=== PATIENT | male | born 1965 | race Caucasian/White ===

== ENCOUNTER 2021-11-16 12:52 | Inpatient (IN) | payer OTHER ==
[2021-11-16] MEDS ORDERED: MAGNESIUM CITRATE 300 ML BOTTLE PO PRN (15:35)
[2021-11-16] MEDS ORDERED: LOPERAMIDE HCL 2 MG CAPSULE PO PRN (15:35)
[2021-11-16] MEDS ORDERED: MAG HYDROX/AL HYDROX/SIMETH 30 ML UNIT-DOSE CUP PO PRN (15:35)
[2021-11-16] MEDS ORDERED: MENTHOL/PHENOL 1 EACH UD MM PRN (15:35)
[2021-11-16] MEDS ORDERED: ONDANSETRON *ODT* 4 MG TABLET SL PRN (15:35)
[2021-11-16] MEDS ORDERED: ACETAMINOPHEN 325 MG TABLET (FP) PO PRN ×2 (15:35)
[2021-11-16] MEDS ORDERED: MAGNESIUM HYDROX 2400MG/30ML ORAL SUSPENSION 30 ML CUP PO PRN (15:35)
[2021-11-16] MEDS ORDERED: NICOTINE 10 MG CARTRIDGE (INHALER) IH PRN (15:35)
[2021-11-16] MEDS ORDERED: IBUPROFEN 400 MG TABLET (FP) PO PRN (15:35)
[2021-11-16] MEDS ORDERED: BISMUTH SUBSALICYLATE 524 MG/30 ML PO PRN (15:35)
[2021-11-16 15:56] VITALS: BMI 35.9
[2021-11-16] MEDS: hydrOXYzine PAMOATE 25 MG CAPSULE (FP) PO SCH ×2 (19:41→22:23)
[2021-11-16] MEDS: MELATONIN 5 MG TABLETS PO SCH (22:24)
[2021-11-16] MEDS: THIAMINE HCL 100 MG TABLET (FP) PO SCH (22:24)
[2021-11-16] MEDS: APIXABAN 5 MG TABLET PO SCH (22:24)
[2021-11-17] MEDS: hydrOXYzine PAMOATE 25 MG CAPSULE (FP) PO SCH ×5 (05:37→22:15)
[2021-11-17] MEDS ORDERED: methaDONE HCL 10 MG TABLET PO ONE (10:06)
[2021-11-17] MEDS ORDERED: LORazepam 1 MG TABLET PO PRN (11:12)
[2021-11-17] MEDS ORDERED: methaDONE HCL 10 MG TABLET ONE (11:30)
[2021-11-17] MEDS ORDERED: methaDONE HCL 40 MG DISPERSABLE TABLET ONE (11:31)
[2021-11-17] MEDS: APIXABAN 5 MG TABLET PO SCH ×2 (11:34→22:15)
[2021-11-17] MEDS: PRENATAL VITAMINS W/ FOLIC ACID TABLET (FP) PO SCH (11:34)
[2021-11-17 12:50] LABS: HEMATOCRIT 40.6 % (35.4-49); HEMOGLOBIN 12.7 GM/dL (11.7-16.9); MCH 28.2 pg (25.7-33.7); MCHC 31.4 g/dl (32.0-35.9); MEAN CELL VOLUME 89.8 fl (80-96); MEAN PLT VOLUME 9.3 fl (7.5-11.1); PLATELET COUNT 276 10^3/uL (134-434); RBC 4.52 M/mm3 (4.00-5.60); WHITE BLOOD COUNT 7.4 K/mm3 (4.0-10.0)
[2021-11-17 13:05] LABS: CALCIUM 9.6 mg/dL (8.5-10.1)
[2021-11-17 13:06] LABS: ALBUMIN 3.7 g/dl (3.4-5.0); BLOOD UREA NITROGEN 19.7 mg/dL (7-18)
[2021-11-17 13:09] LABS: CREATININE 0.9 mg/dL (0.55-1.3)
[2021-11-17 13:10] LABS: TOT PROT 7.1 g/dl (6.4-8.2)
[2021-11-17 13:11] LABS: BILIRUBIN,TOTAL 0.2 mg/dL (0.2-1)
[2021-11-17] MEDS: LORazepam 2 MG TABLET PO SCH ×3 (13:39→22:15)
[2021-11-17] MEDS: MELATONIN 5 MG TABLETS PO SCH (22:15)
[2021-11-17] MEDS: THIAMINE HCL 100 MG TABLET (FP) PO SCH (22:15)
[2021-11-18] MEDS ORDERED: methaDONE HCL 10 MG TABLET ONE (04:11)
[2021-11-18] MEDS ORDERED: methaDONE HCL 40 MG DISPERSABLE TABLET ONE (04:12)
[2021-11-18] MEDS: hydrOXYzine PAMOATE 25 MG CAPSULE (FP) PO SCH ×5 (05:14→22:36)
[2021-11-18] MEDS: LORazepam 2 MG TABLET PO SCH ×4 (05:14→22:36)
[2021-11-18] MEDS ORDERED: methaDONE HCL 10 MG TABLET PO SCH (06:00)
[2021-11-18] MEDS: APIXABAN 5 MG TABLET PO SCH ×2 (10:05→22:36)
[2021-11-18] MEDS: METHOCARBAMOL 500 MG TABLET PO PRN (10:05)
[2021-11-18] MEDS: PRENATAL VITAMINS W/ FOLIC ACID TABLET (FP) PO SCH (10:06)
[2021-11-18] MEDS: traZODone HCL 50 MG TABLET (FP) PO SCH (22:36)
[2021-11-18] MEDS: THIAMINE HCL 100 MG TABLET (FP) PO SCH (22:36)
[2021-11-18] MEDS: MELATONIN 5 MG TABLETS PO SCH (22:37)
[2021-11-18] MEDS: SILVER SULFADIAZINE 1% TOP CREAM 50 GM JAR TP SCH (22:39)
[2021-11-19] MEDS ORDERED: methaDONE HCL 10 MG TABLET ONE (04:14)
[2021-11-19] MEDS ORDERED: methaDONE HCL 40 MG DISPERSABLE TABLET ONE (04:14)
[2021-11-19] MEDS: hydrOXYzine PAMOATE 25 MG CAPSULE (FP) PO SCH ×5 (05:13→22:28)
[2021-11-19] MEDS: LORazepam 1 MG TABLET PO SCH ×4 (05:13→22:26)
[2021-11-19] MEDS: APIXABAN 5 MG TABLET PO SCH ×2 (10:41→22:27)
[2021-11-19] MEDS: SILVER SULFADIAZINE 1% TOP CREAM 50 GM JAR TP SCH ×2 (10:42→23:19)
[2021-11-19] MEDS: PRENATAL VITAMINS W/ FOLIC ACID TABLET (FP) PO SCH (10:42)
[2021-11-19 16:09] LABS: SARS-CoV-2 NAA Not Detected (Not Detected)
[2021-11-19] MEDS: THIAMINE HCL 100 MG TABLET (FP) PO SCH (22:27)
[2021-11-19] MEDS: traZODone HCL 50 MG TABLET (FP) PO SCH (22:27)
[2021-11-19] MEDS: MELATONIN 5 MG TABLETS PO SCH (22:28)
[2021-11-20] MEDS ORDERED: LORazepam 0.5 MG TABLET PO PRN
[2021-11-20] MEDS ORDERED: methaDONE HCL 40 MG DISPERSABLE TABLET ONE (04:17)
[2021-11-20] MEDS ORDERED: methaDONE HCL 10 MG TABLET ONE (04:17)
[2021-11-20] MEDS: hydrOXYzine PAMOATE 25 MG CAPSULE (FP) PO SCH ×5 (05:36→22:34)
[2021-11-20] MEDS: LORazepam 0.5 MG TABLET PO SCH ×4 (05:36→22:34)
[2021-11-20] MEDS: APIXABAN 5 MG TABLET PO SCH ×2 (10:42→22:34)
[2021-11-20] MEDS: METHOCARBAMOL 500 MG TABLET PO PRN (10:42)
[2021-11-20] MEDS: SILVER SULFADIAZINE 1% TOP CREAM 50 GM JAR TP SCH ×2 (10:43→22:34)
[2021-11-20] MEDS: PRENATAL VITAMINS W/ FOLIC ACID TABLET (FP) PO SCH (10:44)
[2021-11-20] MEDS: MELATONIN 5 MG TABLETS PO SCH (22:33)
[2021-11-20] MEDS: traZODone HCL 50 MG TABLET (FP) PO SCH (22:34)
[2021-11-20] MEDS: THIAMINE HCL 100 MG TABLET (FP) PO SCH (22:34)
[2021-11-21] MEDS ORDERED: methaDONE HCL 10 MG TABLET ONE (04:09)
[2021-11-21] MEDS ORDERED: methaDONE HCL 40 MG DISPERSABLE TABLET ONE (04:10)
[2021-11-21] MEDS ORDERED: LORazepam 0.5 MG TABLET PO ONE (05:00)
[2021-11-21] MEDS: hydrOXYzine PAMOATE 25 MG CAPSULE (FP) PO SCH (05:35)
[2021-11-21 09:03] VITALS: BP 126/71; PULSE 74; TEMP 97.3
== END 2021-11-21 10:14 | disposition other institution (70) | DRG 773 ==
LOC: YASAS 12:52 → Y6N 17:33
PROVIDERS: ADMIT Allergy & Immunology; ATTEND Allergy & Immunology
PROC: HZ2ZZZZ Detoxification Services for Substance Abuse Treatment (ICD-10-PCS; principal; 2021-11-16)
DX: F11.23 Opioid dependence with withdrawal (principal); F13.230 Sedative, hypnotic or anxiolytic dependence with withdrawal, uncomplicated; F14.20 Cocaine dependence, uncomplicated; F17.210 Nicotine dependence, cigarettes, uncomplicated; F19.280 Other psychoactive substance dependence with psychoactive substance-induced anxiety disorder; F19.282 Other psychoactive substance dependence with psychoactive substance-induced sleep disorder; F39 Unspecified mood [affective] disorder; F34.1 Dysthymic disorder; L97.811 Non-pressure chronic ulcer of other part of right lower leg limited to breakdown of skin; Z86.718 Personal history of other venous thrombosis and embolism; Z79.01 Long term (current) use of anticoagulants; Z56.0 Unemployment, unspecified
CPT/HCPCS: 36415; 71046-TC-FY; 80053; 82947; 84520; 85027; 86780; 93005; 93010; C9803; U0003; U0005

== ENCOUNTER 2021-11-23 12:22 | Inpatient (IN) | payer OTHER ==
[2021-11-23] MEDS ORDERED: guaiFENesin 200 MG/10 ML 10 ML UNIT-DOSE CUPS PO PRN (12:53)
[2021-11-23] MEDS ORDERED: P-EPHED 60MG/TRIPROLIDI 2.5MG TABLET PO PRN (12:53)
[2021-11-23] MEDS ORDERED: MAG HYDROX/AL HYDROX/SIMETH 30 ML UNIT-DOSE CUP PO PRN (12:53)
[2021-11-23] MEDS ORDERED: IBUPROFEN 400 MG TABLET (FP) PO PRN (12:53)
[2021-11-23] MEDS ORDERED: LOPERAMIDE HCL 2 MG CAPSULE PO PRN (12:53)
[2021-11-23] MEDS ORDERED: MAGNESIUM HYDROX 2400MG/30ML ORAL SUSPENSION 30 ML CUP PO PRN (12:53)
[2021-11-23] MEDS ORDERED: MAGNESIUM CITRATE 300 ML BOTTLE PO PRN (12:53)
[2021-11-23 18:48] VITALS: BMI 38.0
[2021-11-23] MEDS: hydrOXYzine PAMOATE 25 MG CAPSULE (FP) PO SCH ×3 (21:27→22:08)
[2021-11-23] MEDS: THIAMINE HCL 100 MG TABLET (FP) PO SCH (21:27)
[2021-11-23] MEDS: SILVER SULFADIAZINE 1% TOP CREAM 50 GM JAR TP SCH (21:27)
[2021-11-23] MEDS ORDERED: MELATONIN 5 MG TABLETS PO SCH (22:00)
[2021-11-23] MEDS: APIXABAN 5 MG TABLET PO SCH ×2 (22:10→22:12)
[2021-11-24] MEDS ORDERED: methaDONE HCL 10 MG TABLET PO SCH (06:00)
[2021-11-24] MEDS: hydrOXYzine PAMOATE 25 MG CAPSULE (FP) PO SCH ×2 (06:32→09:44)
[2021-11-24] MEDS ORDERED: methaDONE HCL 10 MG TABLET ONE (09:17)
[2021-11-24] MEDS ORDERED: methaDONE HCL 40 MG DISPERSABLE TABLET ONE (09:17)
[2021-11-24] MEDS: NICOTINE 7 MG/24 HOURS TOPICAL PATCH TD SCH (09:43)
[2021-11-24] MEDS: APIXABAN 5 MG TABLET PO SCH ×2 (09:43→21:31)
[2021-11-24] MEDS: PRENATAL VITAMINS W/ FOLIC ACID TABLET (FP) PO SCH (09:44)
[2021-11-24] MEDS: SILVER SULFADIAZINE 1% TOP CREAM 50 GM JAR TP SCH ×2 (09:44→21:34)
[2021-11-24 14:11] LABS: HEMATOCRIT 35.7 % (35.4-49); HEMOGLOBIN 11.6 GM/dL (11.7-16.9); MCH 28.9 pg (25.7-33.7); MCHC 32.6 g/dl (32.0-35.9); MEAN CELL VOLUME 88.7 fl (80-96); PLATELET COUNT 203 10^3/uL (134-434); RBC 4.02 M/mm3 (4.00-5.60); RDW 15.6 % (11.9-15.9); WHITE BLOOD COUNT 4.8 K/mm3 (4.0-10.0)
[2021-11-24 14:17] LABS: ALBUMIN 3.5 g/dl (3.4-5.0); BLOOD UREA NITROGEN 17.3 mg/dL (7-18)
[2021-11-24 14:20] LABS: CREATININE 0.9 mg/dL (0.55-1.3)
[2021-11-24 14:22] LABS: BILIRUBIN,TOTAL 0.4 mg/dL (0.2-1); TOT PROT 6.5 g/dl (6.4-8.2)
[2021-11-24 14:37] LABS: SYPHILIS W/ RPR CONF NON-REACTIVE (NONREACTIVE)
[2021-11-24 17:04] LABS: URINE APPEARANCE CLEAR; URINE BILIRUBIN NEGATIVE (NEGATIVE); URINE COLOR YELLOW; URINE GLUCOSE (UA) NEGATIVE (NEGATIVE); URINE KETONE NEGATIVE (NEGATIVE); URINE LEUK ESTERASE NEGATIVE (NEGATIVE); URINE NITRITE NEGATIVE (NEGATIVE); URINE PROTEIN NEGATIVE (NEGATIVE); URINE UROBILINOGEN 0.2 mg/dL (0.2-1.0)
[2021-11-24] MEDS: THIAMINE HCL 100 MG TABLET (FP) PO SCH (21:31)
[2021-11-24] MEDS: traZODone HCL 50 MG TABLET (FP) PO SCH (21:32)
[2021-11-25] MEDS ORDERED: methaDONE HCL 10 MG TABLET ONE (06:15)
[2021-11-25] MEDS ORDERED: methaDONE HCL 40 MG DISPERSABLE TABLET ONE (06:15)
[2021-11-25] MEDS: APIXABAN 5 MG TABLET PO SCH ×2 (09:33→21:45)
[2021-11-25] MEDS: PRENATAL VITAMINS W/ FOLIC ACID TABLET (FP) PO SCH (09:33)
[2021-11-25] MEDS: SILVER SULFADIAZINE 1% TOP CREAM 50 GM JAR TP SCH ×2 (09:33→21:45)
[2021-11-25] MEDS: NICOTINE 7 MG/24 HOURS TOPICAL PATCH TD SCH (09:33)
[2021-11-25 12:09] LABS: SARS-CoV-2 NAA Not Detected (Not Detected)
[2021-11-25] MEDS: THIAMINE HCL 100 MG TABLET (FP) PO SCH (21:42)
[2021-11-25] MEDS: hydrOXYzine PAMOATE 25 MG CAPSULE (FP) PO PRN (21:43)
[2021-11-25] MEDS: traZODone HCL 50 MG TABLET (FP) PO SCH (21:44)
[2021-11-26] MEDS ORDERED: methaDONE HCL 10 MG TABLET ONE (03:52)
[2021-11-26] MEDS ORDERED: methaDONE HCL 40 MG DISPERSABLE TABLET ONE (03:52)
[2021-11-26] MEDS: SILVER SULFADIAZINE 1% TOP CREAM 50 GM JAR TP SCH ×2 (09:44→21:11)
[2021-11-26] MEDS: NICOTINE 7 MG/24 HOURS TOPICAL PATCH TD SCH (09:44)
[2021-11-26] MEDS: PRENATAL VITAMINS W/ FOLIC ACID TABLET (FP) PO SCH (09:44)
[2021-11-26] MEDS: APIXABAN 5 MG TABLET PO SCH ×2 (09:44→21:12)
[2021-11-26] MEDS: THIAMINE HCL 100 MG TABLET (FP) PO SCH (21:11)
[2021-11-26] MEDS: traZODone HCL 50 MG TABLET (FP) PO SCH (21:11)
[2021-11-26] MEDS: hydrOXYzine PAMOATE 25 MG CAPSULE (FP) PO PRN (21:12)
[2021-11-27] MEDS ORDERED: methaDONE HCL 10 MG TABLET ONE (03:32)
[2021-11-27] MEDS ORDERED: methaDONE HCL 40 MG DISPERSABLE TABLET ONE (03:32)
[2021-11-27] MEDS: APIXABAN 5 MG TABLET PO SCH ×2 (09:38→21:27)
[2021-11-27] MEDS: PRENATAL VITAMINS W/ FOLIC ACID TABLET (FP) PO SCH (09:38)
[2021-11-27] MEDS: NICOTINE 7 MG/24 HOURS TOPICAL PATCH TD SCH (09:38)
[2021-11-27] MEDS: SILVER SULFADIAZINE 1% TOP CREAM 50 GM JAR TP SCH ×2 (09:52→21:26)
[2021-11-27] MEDS: ACETAMINOPHEN 325 MG TABLET (FP) PO PRN (14:28)
[2021-11-27] MEDS: THIAMINE HCL 100 MG TABLET (FP) PO SCH (21:27)
[2021-11-27] MEDS: traZODone HCL 50 MG TABLET (FP) PO SCH (21:27)
[2021-11-28] MEDS ORDERED: methaDONE HCL 10 MG TABLET ONE (03:47)
[2021-11-28] MEDS ORDERED: methaDONE HCL 40 MG DISPERSABLE TABLET ONE (03:47)
[2021-11-28] MEDS: APIXABAN 5 MG TABLET PO SCH ×2 (09:41→21:17)
[2021-11-28] MEDS: PRENATAL VITAMINS W/ FOLIC ACID TABLET (FP) PO SCH (09:42)
[2021-11-28] MEDS: NICOTINE 7 MG/24 HOURS TOPICAL PATCH TD SCH (09:42)
[2021-11-28] MEDS: SILVER SULFADIAZINE 1% TOP CREAM 50 GM JAR TP SCH ×2 (09:42→21:18)
[2021-11-28] MEDS: THIAMINE HCL 100 MG TABLET (FP) PO SCH (21:17)
[2021-11-28] MEDS: traZODone HCL 50 MG TABLET (FP) PO SCH (21:19)
[2021-11-29] MEDS ORDERED: methaDONE HCL 40 MG DISPERSABLE TABLET ONE (03:54)
[2021-11-29] MEDS ORDERED: methaDONE HCL 10 MG TABLET ONE (03:54)
[2021-11-29] MEDS: APIXABAN 5 MG TABLET PO SCH ×2 (10:06→21:13)
[2021-11-29] MEDS: PRENATAL VITAMINS W/ FOLIC ACID TABLET (FP) PO SCH (10:06)
[2021-11-29] MEDS: SILVER SULFADIAZINE 1% TOP CREAM 50 GM JAR TP SCH ×2 (10:06→21:12)
[2021-11-29] MEDS: NICOTINE 7 MG/24 HOURS TOPICAL PATCH TD SCH (10:06)
[2021-11-29] MEDS: traZODone HCL 50 MG TABLET (FP) PO SCH (21:13)
[2021-11-29] MEDS: THIAMINE HCL 100 MG TABLET (FP) PO SCH (21:13)
[2021-11-30] MEDS ORDERED: methaDONE HCL 40 MG DISPERSABLE TABLET ONE (03:38)
[2021-11-30] MEDS ORDERED: methaDONE HCL 10 MG TABLET ONE (03:38)
[2021-11-30] MEDS: APIXABAN 5 MG TABLET PO SCH ×2 (10:05→21:20)
[2021-11-30] MEDS: NICOTINE 7 MG/24 HOURS TOPICAL PATCH TD SCH (10:05)
[2021-11-30] MEDS: SILVER SULFADIAZINE 1% TOP CREAM 50 GM JAR TP SCH ×2 (10:05→21:22)
[2021-11-30] MEDS: PRENATAL VITAMINS W/ FOLIC ACID TABLET (FP) PO SCH (10:05)
[2021-11-30] MEDS: NICOTINE 10 MG CARTRIDGE (INHALER) IH PRN (10:07)
[2021-11-30] MEDS: THIAMINE HCL 100 MG TABLET (FP) PO SCH (21:21)
[2021-11-30] MEDS: traZODone HCL 50 MG TABLET (FP) PO SCH (21:22)
[2021-12-01] MEDS ORDERED: methaDONE HCL 40 MG DISPERSABLE TABLET ONE (03:41)
[2021-12-01] MEDS ORDERED: methaDONE HCL 10 MG TABLET ONE (03:41)
[2021-12-01] MEDS: SILVER SULFADIAZINE 1% TOP CREAM 50 GM JAR TP SCH ×2 (09:54→21:24)
[2021-12-01] MEDS: PRENATAL VITAMINS W/ FOLIC ACID TABLET (FP) PO SCH (09:54)
[2021-12-01] MEDS: NICOTINE 7 MG/24 HOURS TOPICAL PATCH TD SCH (09:54)
[2021-12-01] MEDS: APIXABAN 5 MG TABLET PO SCH ×2 (09:54→21:23)
[2021-12-01] MEDS: THIAMINE HCL 100 MG TABLET (FP) PO SCH (21:23)
[2021-12-01] MEDS: traZODone HCL 50 MG TABLET (FP) PO SCH (21:23)
[2021-12-02] MEDS ORDERED: methaDONE HCL 40 MG DISPERSABLE TABLET ONE (06:15)
[2021-12-02] MEDS ORDERED: methaDONE HCL 10 MG TABLET ONE (06:15)
[2021-12-02] MEDS: APIXABAN 5 MG TABLET PO SCH ×2 (10:07→21:27)
[2021-12-02] MEDS: SILVER SULFADIAZINE 1% TOP CREAM 50 GM JAR TP SCH ×2 (10:08→21:28)
[2021-12-02] MEDS: NICOTINE 7 MG/24 HOURS TOPICAL PATCH TD SCH (10:08)
[2021-12-02] MEDS: PRENATAL VITAMINS W/ FOLIC ACID TABLET (FP) PO SCH (10:08)
[2021-12-02] MEDS: THIAMINE HCL 100 MG TABLET (FP) PO SCH (21:26)
[2021-12-02] MEDS: ACETAMINOPHEN 325 MG TABLET (FP) PO PRN (21:27)
[2021-12-02] MEDS: traZODone HCL 50 MG TABLET (FP) PO SCH (21:38)
[2021-12-03] MEDS ORDERED: methaDONE HCL 10 MG TABLET ONE (03:45)
[2021-12-03] MEDS ORDERED: methaDONE HCL 40 MG DISPERSABLE TABLET ONE (03:46)
[2021-12-03] MEDS: PRENATAL VITAMINS W/ FOLIC ACID TABLET (FP) PO SCH (10:23)
[2021-12-03] MEDS: NICOTINE 7 MG/24 HOURS TOPICAL PATCH TD SCH (10:23)
[2021-12-03] MEDS: APIXABAN 5 MG TABLET PO SCH ×2 (10:23→21:11)
[2021-12-03] MEDS: SILVER SULFADIAZINE 1% TOP CREAM 50 GM JAR TP SCH ×2 (10:23→21:11)
[2021-12-03] MEDS: THIAMINE HCL 100 MG TABLET (FP) PO SCH (21:11)
[2021-12-03] MEDS: traZODone HCL 50 MG TABLET (FP) PO SCH (21:11)
[2021-12-04] MEDS ORDERED: methaDONE HCL 10 MG TABLET ONE (03:26)
[2021-12-04] MEDS ORDERED: methaDONE HCL 40 MG DISPERSABLE TABLET ONE (03:26)
[2021-12-04] MEDS: SILVER SULFADIAZINE 1% TOP CREAM 50 GM JAR TP SCH ×2 (10:02→21:34)
[2021-12-04] MEDS: PRENATAL VITAMINS W/ FOLIC ACID TABLET (FP) PO SCH (10:02)
[2021-12-04] MEDS: NICOTINE 7 MG/24 HOURS TOPICAL PATCH TD SCH (10:02)
[2021-12-04] MEDS: APIXABAN 5 MG TABLET PO SCH ×2 (10:02→21:33)
[2021-12-04] MEDS: THIAMINE HCL 100 MG TABLET (FP) PO SCH (21:34)
[2021-12-04] MEDS: traZODone HCL 50 MG TABLET (FP) PO SCH (21:34)
[2021-12-05] MEDS ORDERED: methaDONE HCL 10 MG TABLET ONE (03:19)
[2021-12-05] MEDS ORDERED: methaDONE HCL 40 MG DISPERSABLE TABLET ONE (03:20)
[2021-12-05] MEDS: APIXABAN 5 MG TABLET PO SCH ×2 (09:59→21:18)
[2021-12-05] MEDS: NICOTINE 7 MG/24 HOURS TOPICAL PATCH TD SCH (09:59)
[2021-12-05] MEDS: SILVER SULFADIAZINE 1% TOP CREAM 50 GM JAR TP SCH ×2 (09:59→21:19)
[2021-12-05] MEDS: PRENATAL VITAMINS W/ FOLIC ACID TABLET (FP) PO SCH (09:59)
[2021-12-05] MEDS: THIAMINE HCL 100 MG TABLET (FP) PO SCH (21:18)
[2021-12-05] MEDS: traZODone HCL 50 MG TABLET (FP) PO SCH (21:18)
[2021-12-06] MEDS ORDERED: methaDONE HCL 10 MG TABLET ONE (03:19)
[2021-12-06] MEDS ORDERED: methaDONE HCL 40 MG DISPERSABLE TABLET ONE (03:19)
[2021-12-06] MEDS: APIXABAN 5 MG TABLET PO SCH ×2 (10:02→21:25)
[2021-12-06] MEDS: PRENATAL VITAMINS W/ FOLIC ACID TABLET (FP) PO SCH (10:02)
[2021-12-06] MEDS: NICOTINE 7 MG/24 HOURS TOPICAL PATCH TD SCH (10:05)
[2021-12-06] MEDS: SILVER SULFADIAZINE 1% TOP CREAM 50 GM JAR TP SCH ×2 (10:05→21:25)
[2021-12-06] MEDS: THIAMINE HCL 100 MG TABLET (FP) PO SCH (21:24)
[2021-12-06] MEDS: traZODone HCL 50 MG TABLET (FP) PO SCH (21:25)
[2021-12-07] MEDS ORDERED: methaDONE HCL 10 MG TABLET ONE (03:41)
[2021-12-07] MEDS ORDERED: methaDONE HCL 40 MG DISPERSABLE TABLET ONE (03:42)
[2021-12-07] MEDS: PRENATAL VITAMINS W/ FOLIC ACID TABLET (FP) PO SCH (09:45)
[2021-12-07] MEDS: NICOTINE 7 MG/24 HOURS TOPICAL PATCH TD SCH (09:46)
[2021-12-07] MEDS: APIXABAN 5 MG TABLET PO SCH ×2 (09:46→21:17)
[2021-12-07] MEDS: SILVER SULFADIAZINE 1% TOP CREAM 50 GM JAR TP SCH ×2 (09:46→21:19)
[2021-12-07] MEDS: THIAMINE HCL 100 MG TABLET (FP) PO SCH (21:17)
[2021-12-07] MEDS: traZODone HCL 50 MG TABLET (FP) PO SCH (21:17)
[2021-12-08] MEDS ORDERED: methaDONE HCL 40 MG DISPERSABLE TABLET ONE (03:42)
[2021-12-08] MEDS ORDERED: methaDONE HCL 10 MG TABLET ONE (03:42)
[2021-12-08] MEDS: NICOTINE 7 MG/24 HOURS TOPICAL PATCH TD SCH (09:49)
[2021-12-08] MEDS: PRENATAL VITAMINS W/ FOLIC ACID TABLET (FP) PO SCH (09:49)
[2021-12-08] MEDS: APIXABAN 5 MG TABLET PO SCH ×2 (09:49→21:46)
[2021-12-08] MEDS: SILVER SULFADIAZINE 1% TOP CREAM 50 GM JAR TP SCH ×2 (09:50→21:46)
[2021-12-08] MEDS: traZODone HCL 50 MG TABLET (FP) PO SCH (21:44)
[2021-12-08] MEDS: THIAMINE HCL 100 MG TABLET (FP) PO SCH (21:46)
[2021-12-09] MEDS ORDERED: methaDONE HCL 10 MG TABLET ONE (06:07)
[2021-12-09] MEDS ORDERED: methaDONE HCL 40 MG DISPERSABLE TABLET ONE (06:07)
[2021-12-09] MEDS: APIXABAN 5 MG TABLET PO SCH ×2 (10:09→21:32)
[2021-12-09] MEDS: NICOTINE 7 MG/24 HOURS TOPICAL PATCH TD SCH (10:10)
[2021-12-09] MEDS: SILVER SULFADIAZINE 1% TOP CREAM 50 GM JAR TP SCH ×2 (10:10→21:33)
[2021-12-09] MEDS: PRENATAL VITAMINS W/ FOLIC ACID TABLET (FP) PO SCH (10:10)
[2021-12-09] MEDS: THIAMINE HCL 100 MG TABLET (FP) PO SCH (21:32)
[2021-12-09] MEDS: traZODone HCL 50 MG TABLET (FP) PO SCH (21:32)
[2021-12-09] MEDS: DOCUSATE SODIUM 100 MG CAPSULE (FP) PO SCH (21:33)
[2021-12-10] MEDS ORDERED: methaDONE HCL 10 MG TABLET ONE (03:18)
[2021-12-10] MEDS ORDERED: methaDONE HCL 40 MG DISPERSABLE TABLET ONE (03:18)
[2021-12-10] MEDS: APIXABAN 5 MG TABLET PO SCH ×2 (10:01→21:30)
[2021-12-10] MEDS: PRENATAL VITAMINS W/ FOLIC ACID TABLET (FP) PO SCH (10:01)
[2021-12-10] MEDS: NICOTINE 7 MG/24 HOURS TOPICAL PATCH TD SCH (10:02)
[2021-12-10] MEDS: SILVER SULFADIAZINE 1% TOP CREAM 50 GM JAR TP SCH ×2 (10:02→21:30)
[2021-12-10] MEDS: DOCUSATE SODIUM 100 MG CAPSULE (FP) PO SCH (21:29)
[2021-12-10] MEDS: traZODone HCL 50 MG TABLET (FP) PO SCH (21:30)
[2021-12-10] MEDS: THIAMINE HCL 100 MG TABLET (FP) PO SCH (21:31)
[2021-12-10] MEDS: ACETAMINOPHEN 325 MG TABLET (FP) PO PRN (21:32)
[2021-12-11] MEDS ORDERED: methaDONE HCL 10 MG TABLET ONE (03:39)
[2021-12-11] MEDS ORDERED: methaDONE HCL 40 MG DISPERSABLE TABLET ONE (03:40)
[2021-12-11] MEDS: PRENATAL VITAMINS W/ FOLIC ACID TABLET (FP) PO SCH (09:58)
[2021-12-11] MEDS: NICOTINE 7 MG/24 HOURS TOPICAL PATCH TD SCH (09:58)
[2021-12-11] MEDS: APIXABAN 5 MG TABLET PO SCH ×2 (09:58→21:16)
[2021-12-11] MEDS: SILVER SULFADIAZINE 1% TOP CREAM 50 GM JAR TP SCH ×2 (10:15→21:17)
[2021-12-11] MEDS: ACETAMINOPHEN 325 MG TABLET (FP) PO PRN (17:23)
[2021-12-11] MEDS: DOCUSATE SODIUM 100 MG CAPSULE (FP) PO SCH (21:16)
[2021-12-11] MEDS: THIAMINE HCL 100 MG TABLET (FP) PO SCH (21:17)
[2021-12-11] MEDS: traZODone HCL 50 MG TABLET (FP) PO SCH (21:17)
[2021-12-12] MEDS ORDERED: methaDONE HCL 40 MG DISPERSABLE TABLET ONE (03:24)
[2021-12-12] MEDS ORDERED: methaDONE HCL 10 MG TABLET ONE (03:24)
[2021-12-12] MEDS: PRENATAL VITAMINS W/ FOLIC ACID TABLET (FP) PO SCH (09:11)
[2021-12-12] MEDS: APIXABAN 5 MG TABLET PO SCH ×2 (09:11→21:33)
[2021-12-12] MEDS: NICOTINE 7 MG/24 HOURS TOPICAL PATCH TD SCH (09:11)
[2021-12-12] MEDS: SILVER SULFADIAZINE 1% TOP CREAM 50 GM JAR TP SCH ×2 (09:12→21:34)
[2021-12-12] MEDS: DOCUSATE SODIUM 100 MG CAPSULE (FP) PO SCH (21:32)
[2021-12-12] MEDS: traZODone HCL 50 MG TABLET (FP) PO SCH (21:33)
[2021-12-12] MEDS: THIAMINE HCL 100 MG TABLET (FP) PO SCH (21:34)
[2021-12-13] MEDS ORDERED: methaDONE HCL 40 MG DISPERSABLE TABLET ONE (03:29)
[2021-12-13] MEDS ORDERED: methaDONE HCL 10 MG TABLET ONE (03:29)
[2021-12-13] MEDS: ACETAMINOPHEN 325 MG TABLET (FP) PO PRN (10:30)
[2021-12-13] MEDS: SILVER SULFADIAZINE 1% TOP CREAM 50 GM JAR TP SCH ×2 (10:30→21:20)
[2021-12-13] MEDS: NICOTINE 7 MG/24 HOURS TOPICAL PATCH TD SCH (10:30)
[2021-12-13] MEDS: APIXABAN 5 MG TABLET PO SCH ×2 (10:30→21:19)
[2021-12-13] MEDS: PRENATAL VITAMINS W/ FOLIC ACID TABLET (FP) PO SCH (10:30)
[2021-12-13] MEDS ORDERED: ACETAMINOPHEN 650 MG SUPP.RECT RC PRN (14:48)
[2021-12-13] MEDS: DOCUSATE SODIUM 100 MG CAPSULE (FP) PO SCH (21:19)
[2021-12-13] MEDS: THIAMINE HCL 100 MG TABLET (FP) PO SCH (21:19)
[2021-12-13] MEDS: traZODone HCL 50 MG TABLET (FP) PO SCH (21:20)
[2021-12-14] MEDS ORDERED: methaDONE HCL 40 MG DISPERSABLE TABLET ONE (03:46)
[2021-12-14] MEDS ORDERED: methaDONE HCL 10 MG TABLET ONE (03:46)
[2021-12-14] MEDS: PRENATAL VITAMINS W/ FOLIC ACID TABLET (FP) PO SCH (10:24)
[2021-12-14] MEDS: APIXABAN 5 MG TABLET PO SCH ×2 (10:24→21:14)
[2021-12-14] MEDS: NICOTINE 7 MG/24 HOURS TOPICAL PATCH TD SCH (10:25)
[2021-12-14] MEDS: SILVER SULFADIAZINE 1% TOP CREAM 50 GM JAR TP SCH ×2 (10:25→21:14)
[2021-12-14] MEDS: NICOTINE 10 MG CARTRIDGE (INHALER) IH PRN (10:25)
[2021-12-14] MEDS: THIAMINE HCL 100 MG TABLET (FP) PO SCH (21:13)
[2021-12-14] MEDS: DOCUSATE SODIUM 100 MG CAPSULE (FP) PO SCH (21:14)
[2021-12-14] MEDS: traZODone HCL 50 MG TABLET (FP) PO SCH (21:14)
[2021-12-15] MEDS ORDERED: methaDONE HCL 40 MG DISPERSABLE TABLET ONE (03:44)
[2021-12-15] MEDS ORDERED: methaDONE HCL 10 MG TABLET ONE (03:44)
[2021-12-15] MEDS ORDERED: ACETAMINOPHEN 325 MG TABLET (FP) PO PRN (09:35)
[2021-12-15] MEDS: SILVER SULFADIAZINE 1% TOP CREAM 50 GM JAR TP SCH ×2 (09:36→21:38)
[2021-12-15] MEDS: PRENATAL VITAMINS W/ FOLIC ACID TABLET (FP) PO SCH (09:36)
[2021-12-15] MEDS: ACETAMINOPHEN 325 MG TABLET (FP) PO PRN (09:36)
[2021-12-15] MEDS ORDERED: ACETAMINOPHEN 650 MG SUPP.RECT RC PRN (09:36)
[2021-12-15] MEDS: APIXABAN 5 MG TABLET PO SCH ×2 (09:36→21:38)
[2021-12-15] MEDS: NICOTINE 7 MG/24 HOURS TOPICAL PATCH TD SCH (09:37)
[2021-12-15] MEDS: traZODone HCL 50 MG TABLET (FP) PO SCH (21:38)
[2021-12-15] MEDS: THIAMINE HCL 100 MG TABLET (FP) PO SCH (21:38)
[2021-12-15] MEDS: DOCUSATE SODIUM 100 MG CAPSULE (FP) PO SCH (21:38)
[2021-12-16] MEDS ORDERED: methaDONE HCL 40 MG DISPERSABLE TABLET ONE (06:09)
[2021-12-16] MEDS ORDERED: methaDONE HCL 10 MG TABLET ONE (06:09)
[2021-12-16] MEDS: APIXABAN 5 MG TABLET PO SCH ×2 (09:43→21:29)
[2021-12-16] MEDS: PRENATAL VITAMINS W/ FOLIC ACID TABLET (FP) PO SCH (09:43)
[2021-12-16] MEDS: SILVER SULFADIAZINE 1% TOP CREAM 50 GM JAR TP SCH ×2 (09:44→21:30)
[2021-12-16] MEDS: NICOTINE 7 MG/24 HOURS TOPICAL PATCH TD SCH (09:44)
[2021-12-16] MEDS: THIAMINE HCL 100 MG TABLET (FP) PO SCH (21:29)
[2021-12-16] MEDS: DOCUSATE SODIUM 100 MG CAPSULE (FP) PO SCH (21:30)
[2021-12-16] MEDS: traZODone HCL 50 MG TABLET (FP) PO SCH (21:30)
[2021-12-17] MEDS ORDERED: methaDONE HCL 40 MG DISPERSABLE TABLET ONE (03:20)
[2021-12-17] MEDS ORDERED: methaDONE HCL 10 MG TABLET ONE (03:20)
[2021-12-17] MEDS: APIXABAN 5 MG TABLET PO SCH ×2 (09:59→21:14)
[2021-12-17] MEDS: PRENATAL VITAMINS W/ FOLIC ACID TABLET (FP) PO SCH (09:59)
[2021-12-17] MEDS: SILVER SULFADIAZINE 1% TOP CREAM 50 GM JAR TP SCH ×2 (10:01→21:15)
[2021-12-17] MEDS: NICOTINE 7 MG/24 HOURS TOPICAL PATCH TD SCH (10:02)
[2021-12-17] MEDS ORDERED: SUMAtriptan SUCCINATE 25 MG TABLET PO ONE (10:30)
[2021-12-17] MEDS: DOCUSATE SODIUM 100 MG CAPSULE (FP) PO SCH (21:14)
[2021-12-17] MEDS: traZODone HCL 50 MG TABLET (FP) PO SCH (21:14)
[2021-12-17] MEDS: THIAMINE HCL 100 MG TABLET (FP) PO SCH (21:14)
[2021-12-18] MEDS ORDERED: methaDONE HCL 40 MG DISPERSABLE TABLET ONE (03:54)
[2021-12-18] MEDS ORDERED: methaDONE HCL 10 MG TABLET ONE (03:54)
[2021-12-18] MEDS: PRENATAL VITAMINS W/ FOLIC ACID TABLET (FP) PO SCH (09:57)
[2021-12-18] MEDS: SILVER SULFADIAZINE 1% TOP CREAM 50 GM JAR TP SCH ×2 (09:57→21:20)
[2021-12-18] MEDS: APIXABAN 5 MG TABLET PO SCH ×2 (09:57→21:20)
[2021-12-18] MEDS: NICOTINE 7 MG/24 HOURS TOPICAL PATCH TD SCH (09:57)
[2021-12-18] MEDS: traZODone HCL 50 MG TABLET (FP) PO SCH (21:19)
[2021-12-18] MEDS: DOCUSATE SODIUM 100 MG CAPSULE (FP) PO SCH (21:19)
[2021-12-18] MEDS: THIAMINE HCL 100 MG TABLET (FP) PO SCH (21:20)
[2021-12-19] MEDS ORDERED: methaDONE HCL 10 MG TABLET ONE (03:18)
[2021-12-19] MEDS ORDERED: methaDONE HCL 40 MG DISPERSABLE TABLET ONE (03:18)
[2021-12-19] MEDS: APIXABAN 5 MG TABLET PO SCH ×2 (09:45→21:22)
[2021-12-19] MEDS: PRENATAL VITAMINS W/ FOLIC ACID TABLET (FP) PO SCH (09:45)
[2021-12-19] MEDS: SILVER SULFADIAZINE 1% TOP CREAM 50 GM JAR TP SCH ×2 (09:45→21:22)
[2021-12-19] MEDS: NICOTINE 7 MG/24 HOURS TOPICAL PATCH TD SCH (09:46)
[2021-12-19] MEDS: DOCUSATE SODIUM 100 MG CAPSULE (FP) PO SCH (21:22)
[2021-12-19] MEDS: THIAMINE HCL 100 MG TABLET (FP) PO SCH (21:22)
[2021-12-19] MEDS: traZODone HCL 50 MG TABLET (FP) PO SCH (21:23)
[2021-12-20] MEDS ORDERED: methaDONE HCL 40 MG DISPERSABLE TABLET ONE (03:20)
[2021-12-20] MEDS ORDERED: methaDONE HCL 10 MG TABLET ONE (03:20)
[2021-12-20] MEDS: NICOTINE 7 MG/24 HOURS TOPICAL PATCH TD SCH (09:59)
[2021-12-20] MEDS: PRENATAL VITAMINS W/ FOLIC ACID TABLET (FP) PO SCH (09:59)
[2021-12-20] MEDS: APIXABAN 5 MG TABLET PO SCH ×2 (09:59→21:21)
[2021-12-20] MEDS: SILVER SULFADIAZINE 1% TOP CREAM 50 GM JAR TP SCH ×2 (10:00→21:21)
[2021-12-20] MEDS: traZODone HCL 50 MG TABLET (FP) PO SCH (21:21)
[2021-12-20] MEDS: DOCUSATE SODIUM 100 MG CAPSULE (FP) PO SCH (21:21)
[2021-12-20] MEDS: THIAMINE HCL 100 MG TABLET (FP) PO SCH (21:21)
[2021-12-21] MEDS ORDERED: methaDONE HCL 10 MG TABLET ONE (03:22)
[2021-12-21] MEDS ORDERED: methaDONE HCL 40 MG DISPERSABLE TABLET ONE (03:22)
[2021-12-21 06:34] VITALS: BP 123/78; PULSE 78; TEMP 97.7
[2021-12-21] MEDS: PRENATAL VITAMINS W/ FOLIC ACID TABLET (FP) PO SCH (09:31)
[2021-12-21] MEDS: NICOTINE 7 MG/24 HOURS TOPICAL PATCH TD SCH (09:31)
[2021-12-21] MEDS: APIXABAN 5 MG TABLET PO SCH (09:31)
== END 2021-12-21 09:37 | disposition home or self-care (01) | DRG 772 ==
LOC: YASAS 12:22 → Y3E 19:00
PROVIDERS: ADMIT Allergy & Immunology; ATTEND Allergy & Immunology
PROC: HZ42ZZZ Group Counseling for Substance Abuse Treatment, Cognitive-Behavioral (ICD-10-PCS; principal; 2021-11-23)
DX: F11.20 Opioid dependence, uncomplicated (principal); F13.20 Sedative, hypnotic or anxiolytic dependence, uncomplicated; F14.20 Cocaine dependence, uncomplicated; F17.210 Nicotine dependence, cigarettes, uncomplicated; F19.282 Other psychoactive substance dependence with psychoactive substance-induced sleep disorder; F31.9 Bipolar disorder, unspecified; F34.1 Dysthymic disorder; Z86.718 Personal history of other venous thrombosis and embolism; Z79.01 Long term (current) use of anticoagulants; Z95.820 Peripheral vascular angioplasty status with implants and grafts
CPT/HCPCS: 36415; 80053; 81003; 83036; 85027; 86780; 86803; 87522; C9803-CS; U0003; U0005